=== PATIENT | male | born 1990 | race Caucasian/White ===

== ENCOUNTER 2020-12-08 09:21 | Emergency (ER) | payer OTHER ==
[~2020-12-08] VITALS: Ht 175.3 cm; Wt 95.3 kg
[2020-12-08 10:18] LABS: HEMOGLOBIN 15.8 gm/dl (14.0-17.5); RED BLOOD COUNT 4.97 M/UL (4.20-5.50); WHITE BLOOD COUNT 12.3 K/UL (4.5-11.0)
[2020-12-08 10:52] LABS: BUN/CREATININE RATIO 14 (0-10)
== END 2020-12-08 13:55 ==
LOC: ER1 09:21
PROVIDERS: Emergency Medicine
DX: M65.841 Other synovitis and tenosynovitis, right hand (principal)
CPT/HCPCS: 73201; 80053; 83605; 85025; 86140; 87040; 96365; 96366; 96367; 99284; J0696; J3370; J7030; J7070; Q9967